=== PATIENT | female | born 1930 | race Caucasian/White ===

== ENCOUNTER → 2017-03-14 | Outpatient (CLI) | payer OTHER ==
[~2017-03-14] MED LIST: ASPI-321 PO; BIOTPOW17 PO; CALC600T9 PO; CENTRUM SILVERSILVE2 PO; CHOLCAP10 PO; LEVO100T7 PO; OMEGCAP2 PO; REDCAP2 PO; SIMV-151 PO; VITAMIN B12 PO; [UNRECOGNIZED DRUG - CODE] PO
[2017-03-14 09:54] LABS: ALT/SGPT 25 U/L (12-78); BLOOD UREA NITROGEN 18 mg/dl (7-18); BUN/CREATININE RATIO 15.2 (10-20); CALCIUM 9.4 mg/dl (8.5-10.1); CARBON DIOXIDE 28 mmol/L (21-32); CHLORIDE 105 mmol/L (98-107); CHOLESTEROL 193 mg/dl (0-200); GLUCOSE 104 mg/dl (70-99); POTASSIUM 4.1 mmol/L (3.5-5.1); SODIUM 140 mmol/L (136-145); TRIGLYCERIDES 276 mg/dl (0-150); VERY LOW DENSITY LIPOPROT CALC 55 mg/dl
[2017-03-14 10:03] LABS: ESTIMATED AVERAGE GLUCOSE 126 mg/dl; HA1C FLAG Normal (Normal)
[2017-03-14 10:05] LABS: ALKALINE PHOSPHATASE 53 U/L (45-117); AST/SGOT 24 U/L (15-37); CHOLESTEROL/HDL RATIO 5.2; HDL CHOLESTEROL 37 mg/dl; LDL CHOLESTEROL CALCULATED 101 mg/dl
== END | disposition home or self-care (01) ==
LOC: C.LAB 07:19
PROVIDERS: ATTEND Internal Medicine
DX: R73.03 Prediabetes (principal)

== ENCOUNTER → 2017-05-02 | Outpatient (CLI) | payer OTHER | END | disposition home or self-care (01) | LOC: C.LAB 07:42 | PROVIDERS: ATTEND Physician Assistant Medical | DX: E03.9 Hypothyroidism, unspecified (principal) ==

== ENCOUNTER → 2018-03-26 | Outpatient (CLI) | payer OTHER ==
[2018-03-26 09:55] LABS: BASO % 0.2 %; BASO ABS # 0.01 K/uL (0-0.2); EOS ABS # 0.13 K/uL (0-0.5); HEMATOCRIT 44.1 % (37-47); HEMOGLOBIN 14.4 g/dL (12.0-16.0); IG# 0.01 K/uL (0.00-0.02); LYMPH % 34.5 %; LYMPH ABS # 2.26 K/uL (1.2-3.4); MEAN CELL VOLUME 89.5 fL (80-100); MEAN CORPUSCULAR HEMOGLOBIN 29.2 pg (25-34); MEAN CORPUSCULAR HGB CONC 32.7 g/dl (32-36); MEAN PLATELET VOLUME 11.2 fL (7.4-10.4); MONO % 9.3 %; MONO ABS # 0.61 K/uL (0.11-0.59); NEUT % 53.8 %; NEUT ABS # 3.54 K/uL (1.4-6.5); PLATELET COUNT 187 K/uL (130-400); RED CELL DISTRIBUTION WIDTH CV 13.5 % (11.5-14.5); RED CELL DISTRIBUTION WIDTH SD 43.8 fL (36.4-46.3); WHITE BLOOD COUNT 6.56 K/uL (4.8-10.8)
[2018-03-26 09:58] LABS: HEMOGLOBIN A1C 5.9 % (4.5-5.6)
[2018-03-26 10:28] LABS: ALBUMIN 3.6 gm/dl (3.4-5.0); ALKALINE PHOSPHATASE 65 U/L (45-117); ALT/SGPT 25 U/L (12-78); AST/SGOT 21 U/L (15-37); BLOOD UREA NITROGEN 19 mg/dl (7-18); CALCIUM 8.5 mg/dl (8.5-10.1); CARBON DIOXIDE 28 mmol/L (21-32); CHOLESTEROL 171 mg/dl (0-200); CREATININE 1.06 mg/dl (0.60-1.20); GLUCOSE 104 mg/dl (70-99); LDL CHOLESTEROL CALCULATED 86 mg/dl; POTASSIUM 4.2 mmol/L (3.5-5.1); SODIUM 138 mmol/L (136-145); TOTAL PROTEIN 7.3 gm/dl (6.4-8.2)
== END | disposition home or self-care (01) ==
LOC: C.LAB 07:23
PROVIDERS: ATTEND Internal Medicine
DX: Z00.00 Encounter for general adult medical examination without abnormal findings (principal); E78.5 Hyperlipidemia, unspecified; E03.9 Hypothyroidism, unspecified; R73.03 Prediabetes

== ENCOUNTER 2021-04-06 10:49 | Inpatient (IN) ==
--- NOTE | 2021-04-06 11:50 | Emergency Department Note ---
Impression & Plan Acute retinal artery occlusion, Abnormal EKG, Elevated troponin I level ED Provider Note NAME: NAYE HARRINGTON AGE: 89 SEX: F : 1930 ARRIVES VIA: Walk-In INFORMANT: Patient, ED PROVIDER(S): Steven Montoya DO CHIEF COMPLAINT: Loss of vision HPI: The patient is an 89-year-old female who presented to the emergency department for an evaluation of left eye vision loss. The patient states that she awoke this morning with decreased vision in her left eye. She immediately set up an appointment with her eye doctor. When she was evaluated she had dilation of her left pupil. Direct retinal evaluation revealed signs of central retinal artery occlusion. The patient at this time denies having any chest pain or difficulty breathing. She has never had a history of a stroke before. She does not take oral anticoagulants. She has no history of atrial fibrillation. She states that she does have a dull headache which is diffuse but this is not atypical for her. She denies having any recent trauma. The patient states that she has a darkening of her entire vision field. When she covers her right eye she cannot see out of her left eye. She states that she has been compliant with her outpatient medications otherwise. She is not seen her family doctor for the symptoms. She was seen recently by her family doctor and sent for further testing because of chest pain and shortness of breath. At that time she had a CT of the chest. ROS: See above HPI for pertinent positives & negatives. A total of 10 systems reviewed and were otherwise negative. PAST MEDICAL HISTORY: See Below PAST SURGICAL HISTORY: See Below FAMILY HISTORY: See Below SOCIAL HISTORY: See Below HOME MEDICATIONS: See Below ALLERGIES: See Below VITALS: See Below PHYSICAL EXAMINATION: GENERAL: Patient is awake alert in no acute distress patient is resting comfortably and showing no signs of anxiety EYES: The conjunctivae are clear. The left pupil is dilated consistent with recent visit to the mold bunch trimmer. The right eye reveals a midsize pupil which is reactive to light. EARS, NOSE, MOUTH AND THROAT: The nose is without any evidence of any deformity. Mucous membranes are moist. Tongue is midline. NECK: The neck is nontender and supple. There is no bruit noted to auscultation. RESPIRATORY: Normal respiratory effort is noted there is no evidence of wheezing rhonchi or rales CARDIOVASCULAR: Regular rate and rhythm noted there no murmurs rubs or gallops normal S1 normal S2. GASTROINTESTINAL: The abdomen is soft. Abdomen is nontender. MUSCULOSKELETAL/EXTREMITIES: There is no evidence of gross deformity full range of motion is noted in the hips and shoulders. SKIN: There is no obvious evidence of any rash. There are no petechiae, pallor or cyanosis noted. NEUROLOGIC: Patient is awake alert and oriented x3 strength is symmetric patellar reflexes are 2+ bilaterally MEDICAL DECISION MAKING: The patient is an 89-year-old female who presented to the emergency department for an evaluation of decreased vision in her left eye. She was seen at an eye doctor and had dilation of her pupil and was found to have signs of a central retinal artery occlusion. I discussed the patient's laboratory and radiographic studies with her. She was not in atrial fibrillation but had an abnormal EKG as well as an elevated troponin. This could point to an underlying cardiac source and may make an embolic phenomena possible. She was also found to have abnorm alities on her angiography. I discussed the patient's laboratory and radiographic studies with her. Given her findings I [facility] have agreed to evaluate the patient in the emergency department for further management and disposition. The patient did not have significant neurologic findings otherwise. She was not made a stroke alert. She did wake up with the symptoms. Triage Nursing notes reviewed. Prior medical records reviewed Vital Signs: reviewed and remarkable for elevated blood pressure. Differential diagnosis: Infection, dehydration, metabolic abnormality, hypo/hyperglycemia, electrolyte disturbance, anemia, hypoxia, cardiac sources, intracerebral event, toxicologic, neurologic, as well as other pathologies. ER treatment provided: See below Diagnostics interpreted by me: ECG: EKG was obtained in the emergency department. My interpretation is normal sinus rhythm at 89 bpm. There was no ectopy. Nonspecific ST segment abnormalities were noted. This was compared to a tracing from December 192009. The ST segment abnormalities are more apparent on the new tracing. Cardiac Monitoring: An order was placed for continuous cardiac monitoring. The monitor shows a rate of 81 bpm with sinus rhythm. Laboratory studies: As stated above and show below. Imaging studies: See below Consultation(s): I discussed this case with Dr. Olmedo who is [facility] He will evaluate the patient in the emergency department for further management and disposition. Past Med/Surg History Medical History (Updated 04/06/21 @ 14:42 by Steven Montoya DO) Anosmia Heart palpitations Hyperlipidemia Hypothyroid Surgical History History of cataract surgery History of section History of colonoscopy History of hysterectomy History of tonsillectomy Family History Unknown Hypertension Mother Congestive heart failure Father Congestive heart failure Daughter Diabetes Son Diabetes Denies family history of Ovarian cancer Prostate cancer Myocardial infarction Breast cancer Lung cancer Colorectal cancer Social History Smoking Status: Former smoker Tobacco Type: Cigarettes Second Hand Exposure: No; Hx Alcohol Use: Yes Alcohol type: wine Alcohol Intake Frequency: 4 or More x per/Week Hx Substance Use: No Preferred Language: [place] Communication Ability: Effective Visual Impairment: Limited Hearing Ability: Normal 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: No marital status: / Current Living Situation: Alone current occupational status: retired How many Children do You have: 2 Feels Safe at Home: Yes Childhood Exposure to Second-Hand Smoke: No caffeine: Yes Dental Care, Regularly: Yes Physical Activity Frequency: Daily Seatbelt Use: always Sunscreen Use: Yes Allergies Allergies Allergy/AdvReac Type Severity Reaction Status Date / Time codeine Allergy Mild VOMITING Verified 04/06/21 11:02 Home Meds Home Medications Medication Instructions Recorded Confirmed B-complex with vitamin C (Super B 1 tab PO DAILY 03/22/19 04/06/21 Complex-Vitamin C) cholecalciferol (vitamin D3) 125 5,000 units PO DAILY tab 03/22/19 04/06/21 mcg (5,000 unit) tablet multivitamin-ferrous 1 tab PO DAILY 03/22/19 04/06/21 fumarate-folic acid 18 mg-400 mcg tablet (Centrum Women) omega-3 acid ethyl esters 1 gram 1 cap PO DAILY cap 03/22/19 04/06/21 capsule levothyroxine 112 mcg capsule 112 mcg PO DAILY 02/04/21 04/06/21 ascorbic acid (vitamin C) 500 mg 500 mg PO DAILY 04/06/21 04/06/21 tablet (Vitamin C) aspirin 81 mg tablet,delayed 81 mg PO DAILY 04/06/21 04/06/21 release calcium carbonate 600 mg calcium 600 mg PO DAILY 04/06/21 04/06/21 (1,500 mg) tablet (Calcium) fenofibric acid (choline) 135 mg 135 mg PO DAILY 04/06/21 04/06/21 capsule,delayed release (Trilipix) zinc sulfate 50 mg zinc (220 mg) 50 mg PO BID 04/06/21 04/06/21 tablet Previous Rx's Medication Instructions Recorded amlodipine 5 mg tablet 2.5 mg PO QAM #30 tab 04/28/20 simvastatin 20 mg tablet 20 mg PO QPM #90 tab 09/07/20 chlorthalidone 25 mg tablet 25 mg PO DAILY #90 tab 12/23/20 Results & Data (ED) Vital Signs Vital Signs - 24 hr 04/06/21 10:53 04/06/21 11:33 Temperature 36.6 C Temperature Source Temporal Artery Scan Pulse Rate 84 81 Pulse Rate from SpO2 Sensor 80 Pulse Rhythm Regular Pulse Strength Normal Respiratory Rate 20 14 Respiratory Effort / Characteristics Non-Labored Spontaneous Respiratory Depth Normal Respiratory Pattern Regular Blood Pressure 174/85 H 158/75 H Blood Pressure Mean 114 102 Blood Pressure Position Sitting Pulse Oximetry 95 95 Oxygen Delivery Method Room Air Sepsis Recent Fever Within 48 Hours No Sepsis New/Unexplained Change in Mental Status No Sepsis Action Taken by Nursing No Action Required Home Medications Current Medication List: was personally reviewed by me Laboratory Data Attestation: I reviewed the patient's lab results. Result diagrams: 04/06/21 11:30 04/06/21 11:30 Lab Results 04/06/21 04/06/21 04/06/21 Range/Units 11:27 11:30 11:30 WBC 8.11 (4.8-10.8) K/uL RBC 4.82 (4.2-5.4) M/uL Hgb 14.8 (12.0-16.0) g/dL Hct 43.9 (37-47) % MCV 91.1 (80-100) fL MCH 30.7 (25-34) pg MCHC 33.7 (32-36) g/dL RDW Std Deviation 42.5 (36.4-46.3) fL RDW Coeff of Denise 12.7 (11.5-14.5) % Plt Count 243 (130-400) K/uL MPV 10.4 (7.4-10.4) fL Immature Gran % (Auto) 0.2 % Neut % (Auto) 67.4 % Lymph % (Auto) 22.8 % Greene % (Auto) 7.9 % Eos % (Auto) 1.5 % Baso % (Auto) 0.2 % Neut # (Auto) 5.46 (1.4-6.5) K/uL Lymph # (Auto) 1.85 (1.2-3.4) K/uL Greene # (Auto) 0.64 H (0.11-0.59) K/uL Eos # (Auto) 0.12 (0-0.5) K/uL Baso # (Auto) 0.02 (0-0.2) K/uL Immature Gran # (Auto) 0.02 (0.00-0.02) K/uL ESR (0-30) mm/hr PT 10.3 (9.0-12.0) Seconds INR 1.0 (0.9-1.1) APTT 26.4 (21.0-31.0) Seconds PTT Ratio 1.0 Sodium (136-145) mmol/L Potassium (3.5-5.1) mmol/L Chloride (98-107) mmol/L Carbon Dioxide (21-32) mmol/L Anion Gap (3-11) BUN (7-18) mg/dl Creatinine (0.6-1.2) mg/dl Est Cr Clr Drug Dosing ml/min Est GFR ( Amer) ml/min Est GFR (Non-Af Amer) ml/min BUN/Creatinine Ratio (10-20) Glucose (70-99) mg/dl POC Glucose 101 H (70-99) mg/dl Calcium (8.5-10.1) mg/dl Magnesium (1.8-2.4) mg/dl Total Bilirubin (0.2-1) mg/dl AST (15-37) U/L ALT (12-78) U/L Alkaline Phosphatase (45-117) U/L Troponin I (0-0.045) ng/ml C-Reactive Protein (0-0.29) mg/dl Total Protein (6.4-8.2) gm/dl Albumin (3.4-5.0) gm/dl Globulin (2.5-4.0) gm/dl Albumin/Globulin Ratio (0.9-2) Specimen Hemolysis COVID-19 Eval Order SARS-CoV-2 (PCR) (Negative) 04/06/21 04/06/21 04/06/21 Range/Units 11:30 11:30 13:08 WBC (4.8-10.8) K/uL RBC (4.2-5.4) M/uL Hgb (12.0-16.0) g/dL Hct (37-47) % MCV (80-100) fL MCH (25-34) pg MCHC (32-36) g/dL RDW Std Deviation (36.4-46.3) fL RDW Coeff of Denise (11.5-14.5) % Plt Count (130-400) K/uL MPV (7.4-10.4) fL Immature Gran % (Auto) % Neut % (Auto) % Lymph % (Auto) % Greene % (Auto) % Eos % (Auto) % Baso % (Auto) % Neut # (Auto) (1.4-6.5) K/uL Lymph # (Auto) (1.2-3.4) K/uL Greene # (Auto) (0.11-0.59) K/uL Eos # (Auto) (0-0.5) K/uL Baso # (Auto) (0-0.2) K/uL Immature Gran # (Auto) (0.00-0.02) K/uL ESR 49 H (0-30) mm/hr PT (9.0-12.0) Seconds INR (0.9-1.1) APTT (21.0-31.0) Seconds PTT Ratio Sodium 135 L (136-145) mmol/L Potassium 4.0 (3.5-5.1) mmol/L Chloride 100 (98-107) mmol/L Carbon Dioxide 29 (21-32) mmol/L Anion Gap 6.0 (3-11) BUN 21 H (7-18) mg/dl Creatinine 1.01 (0.6-1.2) mg/dl Est Cr Clr Drug Dosing 40.4 ml/min Est GFR ( Amer) 57.2 ml/min Est GFR (Non-Af Amer) 49.3 ml/min BUN/Creatinine Ratio 20.8 H (10-20) Glucose 99 (70-99) mg/dl POC Glucose (70-99) mg/dl Calcium 10.2 H (8.5-10.1) mg/dl Magnesium 1.8 (1.8-2.4) mg/dl Total Bilirubin 0.4 (0.2-1) mg/dl AST 26 (15-37) U/L ALT 26 (12-78) U/L Alkaline Phosphatase 56 (45-117) U/L Troponin I 0.177 H* (0-0.045) ng/ml C-Reactive Protein 0.61 H (0-0.29) mg/dl Total Protein 8.2 (6.4-8.2) gm/dl Albumin 4.1 (3.4-5.0) gm/dl Globulin 4.1 H (2.5-4.0) gm/dl Albumin/Globulin Ratio 1.0 (0.9-2) Specimen Hemolysis COVID-19 Eval Order Covid19 at [facility] SARS-CoV-2 (PCR) (Negative) 04/06/21 Range/Units 13:08 WBC (4.8-10.8) K/uL RBC (4.2-5.4) M/uL Hgb (12.0-16.0) g/dL Hct (37-47) % MCV (80-100) fL MCH (25-34) pg MCHC (32-36) g/dL RDW Std Deviation (36.4-46.3) fL RDW Coeff of Denise (11.5-14.5) % Plt Count (130-400) K/uL MPV (7.4-10.4) fL Immature Gran % (Auto) % Neut % (Auto) % Lymph % (Auto) % Greene % (Auto) % Eos % (Auto) % Baso % (Auto) % Neut # (Auto) (1.4-6.5) K/uL Lymph # (Auto) (1.2-3.4) K/uL Greene # (Auto) (0.11-0.59) K/uL Eos # (Auto) (0-0.5) K/uL Baso # (Auto) (0-0.2) K/uL Immature Gran # (Auto) (0.00-0.02) K/uL ESR (0-30) mm/hr PT (9.0-12.0) Seconds INR (0.9-1.1) APTT (21.0-31.0) Seconds PTT Ratio Sodium (136-145) mmol/L Potassium (3.5-5.1) mmol/L Chloride (98-107) mmol/L Carbon Dioxide (21-32) mmol/L Anion Gap (3-11) BUN (7-18) mg/dl Creatinine (0.6-1.2) mg/dl Est Cr Clr Drug Dosing ml/min Est GFR ( Amer) ml/min Est GFR (Non-Af Amer) ml/min BUN/Creatinine Ratio (10-20) Glucose (70-99) mg/dl POC Glucose (70-99) mg/dl Calcium (8.5-10.1) mg/dl Magnesium (1.8-2.4) mg/dl Total Bilirubin (0.2-1) mg/dl AST (15-37) U/L ALT (12-78) U/L Alkaline Phosphatase (45-117) U/L Troponin I (0-0.045) ng/ml C-Reactive Protein (0-0.29) mg/dl Total Protein (6.4-8.2) gm/dl Albumin (3.4-5.0) gm/dl Globulin (2.5-4.0) gm/dl Albumin/Globulin Ratio (0.9-2) Specimen Hemolysis COVID-19 Eval Order SARS-CoV-2 (PCR) NEGATIVE (Negative) Administered Medications Discontinued Medications Ioversol (Optiray 320 125ml) 120 ml IV ONCE ONE Stop: 04/06/21 12:45 Last Admin: 04/06/21 12:44 Dose: 120 ml Documented by: [id number] Imaging Data Radiologist's Impression: Chest X-Ray 04/06/21 11:04 XR chest 1V portable HISTORY: Stroke Like Symptoms COMPARISON: Chest 03/25/2021. FINDINGS: The lungs are hyperexpanded with mild apical predominant emphysematous changes. Stable chronic interstitial thickening the lung bases. No new focal lung consolidations to suggest pneumonia. No evidence for pulmonary edema. The heart is normal in size. No pleural effusions. No pneumothorax. IMPRESSION: No significant change compared to the prior study. No acute process. ACT 112: Negative or not required by law. Electronically signed by: Glenn Phillips M.D. 04/06/2021 11:[address] 04/06/21 11:04 CT head/brain wo con CLINICAL HISTORY: Stroke Like Symptoms COMPARISON STUDY: December 19, 2009 TECHNIQUE: Axial CT of the brain is performed from the vertex to the skull base. IV contrast was not administered for this examination. A dose lowering technique was utilized adhering to the principles of ALARA. CT DOSE: 1041.21 mGy.cm FINDINGS: No intra or extra-axial mass lesions are visualized. There is no CT evidence of acute cortical infarction. There is no evidence of midline shift. There is no acute hemorrhage. No acute depressed calvarial fractures are visualized. There are patchy white matter hypodensities, most prominent within left basal ganglia and subcortical white matter of the left frontal lobe which were also seen on prior, likely on a small vessel basis. Mild atrophic changes of brain parenchyma associated with ex vacuo dilatation of ventricles. There is no evidence of acute sinusitis IMPRESSION: No acute intracranial hemorrhage, no midline shift or space occupying lesions. Mild atrophic changes of brain parenchyma. Chronic small vessel ischemia. ACT 112: Negative or not required by law. The above report was generated using voice recognition software. It may contain grammatical, syntax or spelling errors. Electronically signed by: Destiny Flannery DO 04/06/2021 12:58 PM Head CTA 04/06/21 11:04 CT ANGIOGRAM OF THE BRAIN; CT ANGIOGRAM OF THE NECK CLINICAL HISTORY: Stroke like symptoms. COMPARISON STUDY: Unenhanced CT of the brain performed concurrently on 04/06/2021. TECHNIQUE: Following the IV administration of 120 of Optiray 320, CT angiogram of the head and neck was performed from the aortic arch to the vertex. Images are reviewed in the axial, sagittal, and coronal planes. 3-D MIPS images are created and assessed. IV contrast was administered without complication. All measurements were calculated based on NASCET criteria. A dose lowering technique was utilized adhering to the principles of ALARA. FINDINGS: Brain parenchyma: There is age-related involutional change noting mild subcortical and periventricular microangiopathic disease. There is no hemorrhage, mass effect, or evidence of acute territorial ischemia by CT criteria. There is no evidence of enhancing mass lesion on the angiogram phase images. The ventricles, sulci, and cisterns are prominent secondary to involutional change. Huerta-white matter differentiation is preserved. No extra- axial fluid collection is seen. Right carotid arterial system: The right common carotid artery is widely patent, as are the right internal and external carotid arteries. Calcified plaque is noted in the carotid bulb. There is a beaded appearance of the mid to distal internal carotid artery. Left carotid arterial system: The left common carotid artery is widely patent, as are the left internal and external carotid arteries. Calcified Plaque is noted in the carotid bulb. The mid to distal internal carotid artery demonstrates a beaded appearance Vertebral arteries: The vertebral arteries are widely patent bilaterally and codominant. Subclavian arteries: Widely patent bilaterally. Intracranial vasculature: There is atherosclerotic calcification of the cavernous carotid and vertebral arteries. There is origin of the right posterior cerebral artery. The internal carotid arteries are patent at the skull base, as are the anterior and middle cerebral arteries bilaterally. The vertebrobasilar system and posterior cerebral arteries are widely patent. The vertebral arteries are codominant. There is no aneurysm, high-grade stenosis, or focal vessel cut off seen throughout the intracranial circulation. Jugular veins: Patent bilaterally. Dural sinuses: Patent. Lung apices: Mild emphysematous change is noted in the upper lobes. Upper lobe lung parenchyma is otherwise clear as imaged. Soft tissues: The visualized pharyngeal soft tissues are normal in appearance noting angiographic phase technique. The oropharyngeal airway appears widely patent. The thyroid gland is atrophic. The salivary glands are normal in appearance. No cervical lymphadenopathy is seen. Skeletal structures: The skeletal structures are osteopenic. The calvarium appears intact. The cervical spine is maintained noting advanced multilevel spondylosis.. No lytic or blastic lesion is seen. Orbits: The bony orbits are intact. Orbital contents are normal as visualized noting bilateral ocular lens implants. Sinuses and mastoids: The paranasal sinuses are clear. The mastoid air cells are well pneumatized. IMPRESSION: 1. There is no evidence of hemorrhage, mass effect, or acute territorial ischemia noting angiographic phase technique. 2. Unremarkable CT angiogram of the brain. 3. 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 4. Otherwise unremarkable CT angiogram of the neck. ACT 112: Negative or not required by law. Electronically signed by: Willian Thomason M.D. 04/06/2021 1:02 PM Neck CTA 08/17/21 11:04 CT ANGIOGRAM OF THE BRAIN; CT ANGIOGRAM OF THE NECK CLINICAL HISTORY: Stroke like symptoms. COMPARISON STUDY: Unenhanced CT of the brain performed concurrently on 04/06/2021. TECHNIQUE: Following the IV administration of 120 of Optiray 320, CT angiogram of the head and neck was performed from the aortic arch to the vertex. Images are reviewed in the axial, sagittal, and coronal planes. 3-D MIPS images are created and assessed. IV contrast was administered without complication. All measurements were calculated based on NASCET criteria. A dose lowering technique was utilized adhering to the principles of ALARA. FINDINGS: Brain parenchyma: There is age-related involutional change noting mild subcortical and periventricular microangiopathic disease. There is no hemorrhage, mass effect, or evidence of acute territorial ischemia by CT criteria. There is no evidence of enhancing mass lesion on the angiogram phase images. The ventricles, sulci, and cisterns are prominent secondary to involutional change. Huerta-white matter differentiation is preserved. No extra- axial fluid collection is seen. Right carotid arterial system: The right common carotid artery is widely patent, as are the right internal and external carotid arteries. Calcified plaque is noted in the carotid bulb. There is a beaded appearance of the mid to distal internal carotid artery. Left carotid arterial system: The left common carotid artery is widely patent, as are the left internal and external carotid arteries. Calcified Plaque is noted in the carotid bulb. The mid to distal internal carotid artery demonstrates a beaded appearance Vertebral arteries: The vertebral arteries are widely patent bilaterally and codominant. Subclavian arteries: Widely patent bilaterally. Intracranial vasculature: There is atherosclerotic calcification of the cavernous carotid and vertebral arteries. There is origin of the right posterior cerebral artery. The internal carotid arteries are patent at the skull base, as are the anterior and middle cerebral arteries bilaterally. The vertebrobasilar system and posterior cerebral arteries are widely patent. The vertebral arteries are codominant. There is no aneurysm, high-grade stenosis, or focal vessel cut off seen throughout the intracranial circulation. Jugular veins: Patent bilaterally. Dural sinuses: Patent. Lung apices: Mild emphysematous change is noted in the upper lobes. Upper lobe lung parenchyma is otherwise clear as imaged. Soft tissues: The visualized pharyngeal soft tissues are normal in appearance noting angiographic phase technique. The oropharyngeal airway appears widely patent. The thyroid gland is atrophic. The salivary glands are normal in appearance. No cervical lymphadenopathy is seen. Skeletal structures: The skeletal structures are osteopenic. The calvarium appears intact. The cervical spine is maintained noting advanced multilevel spondylosis.. No lytic or blastic lesion is seen. Orbits: The bony orbits are intact. Orbital contents are normal as visualized noting bilateral ocular lens implants. Sinuses and mastoids: The paranasal sinuses are clear. The mastoid air cells are well pneumatized. IMPRESSION: 1. There is no evidence of hemorrhage, mass effect, or acute territorial ischemia noting angiographic phase technique. 2. Unremarkable CT angiogram of the brain. 3. 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 4. Otherwise unremarkable CT angiogram of the neck. ACT 112: Negative or not required by law. Electronically signed by: Willian Thomason M.D. 04/06/2021 1:02 PM Discharge Plan Visit Data Chief Complaint: Eye Problems Stated Complaint: OCCLUSION LEFT EYE ED Provider: Steven Montoya Discharge Problem: Acute retinal artery occlusion, Abnormal EKG, Elevated troponin I level Patient Disposition: Being Evaluated by Hospitalist Condition: Good Forms Stand Alone Forms: My [facility] [employer] Prescriptions Prescriptions: No Action simvastatin 20 mg tablet 20 mg PO QPM Qty: 90 RF: 3 chlorthalidone 25 mg tablet 25 mg PO DAILY Qty: 90 RF: 3 Centrum Women 18-400 mg-mcg tablet 1 tab PO DAILY RF: 0 omega-3 acid ethyl esters 1 gram capsule 1 cap PO DAILY RF: 0 B-complex with vitamin C [Super B Complex-Vitamin C] tablet 1 tab PO DAILY RF: 0 cholecalciferol (vitamin D3) 5,000 unit tablet 5,000 units PO DAILY RF: 0 amlodipine 5 mg tablet 2.5 mg PO QAM Qty: 30 RF: 5 levothyroxine 112 mcg capsule 112 mcg PO DAILY RF: 0 aspirin 81 mg Tablet,Delayed Release (Dr/Ec) 81 mg PO DAILY RF: 0 zinc sulfate 50 mg zinc (220 mg) Tablet 50 mg PO BID RF: 0 calcium carbonate [Calcium 600] 600 mg calcium (1,500 mg) Tablet 600 mg PO DAILY RF: 0 ascorbic acid (vitamin C) [Vitamin C] 500 mg Tablet 500 mg PO DAILY RF: 0 fenofibric acid (choline) [Trilipix] 135 mg capsule,delayed release(DR/EC) 135 mg PO DAILY RF: 0 Referrals Referrals: Bryant Lujan MD [Primary Care Provider] -
[2021-04-06 11:59] LABS: Partial Thromboplastin Time 26.4 Seconds (21.0-31.0); Prothrombin Time 10.3 Seconds (9.0-12.0)
[2021-04-06 12:03] LABS: Albumin Level 4.1 gm/dl (3.4-5.0); BUN Creatinine Ratio 20.8 (10-20); C Reactive Protein 0.61 mg/dl (0-0.29); Calcium 10.2 mg/dl (8.5-10.1); Creatinine Clr Calc Pharmacy 40.4 ml/min; Est GFR (African American) 57.2 ml/min; Est GFR (Non-African American) 49.3 ml/min; Magnesium 1.8 mg/dl (1.8-2.4)
[2021-04-06 12:11] LABS: Basophils # (auto) 0.02 K/uL (0-0.2); Basophils % (auto) 0.2 %; Eosinophils # (auto) 0.12 K/uL (0-0.5); Eosinophils % (auto) 1.5 %; Hematocrit (blood only) 43.9 % (37-47); Hemoglobin 14.8 g/dL (12.0-16.0); Immature Granulocytes # (auto) 0.02 K/uL (0.00-0.02); Immature Granulocytes % (auto) 0.2 %; Lymphocytes # (auto) 1.85 K/uL (1.2-3.4); Lymphocytes % (auto) 22.8 %; Mean Corpuscular Hemoglobin 30.7 pg (25-34); Mean Corpuscular Hgb Conc 33.7 g/dL (32-36); Mean Corpuscular Volume 91.1 fL (80-100); Mean Platelet Volume 10.4 fL (7.4-10.4); Monocytes # (auto) 0.64 K/uL (0.11-0.59); Monocytes % (auto) 7.9 %; Neutrophils # (auto) 5.46 K/uL (1.4-6.5); Neutrophils % (auto) 67.4 %; Platelet Count 243 K/uL (130-400); RDW Coefficient of Variation 12.7 % (11.5-14.5); RDW Standard Deviation 42.5 fL (36.4-46.3); Red Blood Count 4.82 M/uL (4.2-5.4); White Blood Count 8.11 K/uL (4.8-10.8)
[2021-04-06 12:12] LABS: Bilirubin,Total 0.4 mg/dl (0.2-1); Globulin 4.1 gm/dl (2.5-4.0); Total Protein 8.2 gm/dl (6.4-8.2); Troponin I 0.177 ng/ml (0-0.045)
[2021-04-06] MEDS ORDERED: OPTIRAY 320 125ml IV ONE (12:44)
--- NOTE | 2021-04-06 12:59 | CT Scan Report ---
CT head/brain wo con CLINICAL HISTORY: Stroke Like Symptoms COMPARISON STUDY: December 19, 2009 TECHNIQUE: Axial CT of the brain is performed from the vertex to the skull base. IV contrast was not administered for this examination. A dose lowering technique was utilized adhering to the principles of ALARA. CT DOSE: 1041.21 mGy.cm FINDINGS: No intra or extra-axial mass lesions are visualized. There is no CT evidence of acute cortical infarc tion. There is no evidence of midline shift. There is no acute hemorrhage. No acute depressed calvar ial fractures are visualized. There are patchy white matter hypodensities, most prominent within left basal ganglia and subcortical white matter of the left frontal lobe which were also seen on prior, likely on a small vessel basis. Mild atrophic changes of brain parenchyma associated with ex vacuo dilatation of ventricles. There is no evidence of acute sinusitis IMPRESSION: No acute intracranial hemorrhage, no midline shift or space occupying lesions. Mild atrophic changes of brain parenchyma. Chronic small vessel ischemia. ACT 112: Negative or not required by law. The above report was generated using voice recognition software. It may contain grammatical, syntax o r spelling errors. Electronically signed by: Destiny Flannery DO 04/06/2021 12:58 PM
--- NOTE | 2021-04-06 13:03 | CT Scan Report ---
CT ANGIOGRAM OF THE BRAIN; CT ANGIOGRAM OF THE NECK CLINICAL HISTORY: Stroke like symptoms. COMPARISON STUDY: Unenhanced CT of the brain performed concurrently on 04/06/2021. TECHNIQUE: Following the IV administration of 120 of Optiray 320, CT angiogram of the head and neck w as performed from the aortic arch to the vertex. Images are reviewed in the axial, sagittal, and leslie nal planes. 3-D MIPS images are created and assessed. IV contrast was administered without complicati on. All measurements were calculated based on NASCET criteria. A dose lowering technique was utilize d adhering to the principles of ALARA. FINDINGS: Brain parenchyma: There is age-related involutional change noting mild subcortical and periventricula r microangiopathic disease. There is no hemorrhage, mass effect, or evidence of acute territorial isc hemia by CT criteria. There is no evidence of enhancing mass lesion on the angiogram phase images. Th e ventricles, sulci, and cisterns are prominent secondary to involutional change. Huerta-white matter d ifferentiation is preserved. No extra-axial fluid collection is seen. Right carotid arterial system: The right common carotid artery is widely patent, as are the right int ernal and external carotid arteries. Calcified plaque is noted in the carotid bulb. There is a beaded appearance of the mid to distal internal carotid artery. Left carotid arterial system: The left common carotid artery is widely patent, as are the left internet database specialist al and external carotid arteries. Calcified Plaque is noted in the carotid bulb. The mid to distal in ternal carotid artery demonstrates a beaded appearance Vertebral arteries: The vertebral arteries are widely patent bilaterally and codominant. Subclavian arteries: Widely patent bilaterally. Intracranial vasculature: There is atherosclerotic calcification of the cavernous carotid and vertebr al arteries. There is origin of the right posterior cerebral artery. The internal carotid arter ies are patent at the skull base, as are the anterior and middle cerebral arteries bilaterally. The v ertebrobasilar system and posterior cerebral arteries are widely patent. The vertebral arteries are c odominant. There is no aneurysm, high-grade stenosis, or focal vessel cut off seen throughout the int racranial circulation. Jugular veins: Patent bilaterally. Dural sinuses: Patent. Lung apices: Mild emphysematous change is noted in the upper lobes. Upper lobe lung parenchyma is oth erwise clear as imaged. Soft tissues: The visualized pharyngeal soft tissues are normal in appearance noting angiographic pha se technique. The oropharyngeal airway appears widely patent. The thyroid gland is atrophic. The sali vary glands are normal in appearance. No cervical lymphadenopathy is seen. Skeletal structures: The skeletal structures are osteopenic. The calvarium appears intact. The cervic al spine is maintained noting advanced multilevel spondylosis.. No lytic or blastic lesion is seen. Orbits: The bony orbits are intact. Orbital contents are normal as visualized noting bilateral ocular lens implants. Sinuses and mastoids: The paranasal sinuses are clear. The mastoid air cells are well pneumatized. IMPRESSION: 1. There is no evidence of hemorrhage, mass effect, or acute territorial ischemia noting angiographic phase technique. 2. Unremarkable CT angiogram of the brain. 3. The internal carotid arteries demonstrate a beaded appearance bilaterally, typical in appearance f or fibromuscular dysplasia. 4. Otherwise unremarkable CT angiogram of the neck. ACT 112: Negative or not required by law. Electronically signed by: Willian Thomason M.D. 04/06/2021 1:02 PM
--- NOTE | 2021-04-06 13:31 | History & Physical Report ---
Date of Service April 06, 2021 Assessment & Plan (1) Central retinal artery occlusion, left eye: Plan: Patient will be admitted for left central retinal artery occlusion. Will admit stroke set workup. Obtained CTA head and neck. will obtain MRI will obtain echo. Obtained ESR, CRP: mildly elevated. will repeat in AM. consult neuro. place on plavix and ASA. (2) Hyperlipidemia: Plan: will check FLP in AM. Order high intensity statin. (3) Hypothyroidism: Plan: resume levothyroxine. (4) Pre-diabetes: Plan: OBTAIN a1c (5) Hypertension: Plan: monitor BP. will likely resume BP meds at home. History of Present Illness Chief Complaint: Left eye vision loss Primary Care Provider: Bryant Lujan MD 89 yo female who reports waking up with left vision loss. Patient went to see her ophtalmologist who diagnosed a left central retinal artery occlusion. Patient was then brought to the ER. The patient denies any history of a stroke before. She does not take oral anticoagulants. She has no history of atrial fibrillation. She denies having any recent trauma. When she covers her right eye she cannot see out of her left eye except for the peripheral field. She states that she has been compliant with her outpatient medications otherwise. Allergies Allergy/AdvReac Type Severity Reaction Status Date / Time codeine Allergy Mild VOMITING Verified 04/06/21 11:02 Home Medications Medication Instructions Recorded Confirmed Type B-complex with vitamin C (Super B 1 tab PO DAILY 03/22/19 04/06/21 History Complex-Vitamin C) cholecalciferol (vitamin D3) 125 5,000 units PO DAILY tab 03/22/19 04/06/21 History mcg (5,000 unit) tablet multivitamin-ferrous 1 tab PO DAILY 03/22/19 04/06/21 History fumarate-folic acid 18 mg-400 mcg tablet (Centrum Women) omega-3 acid ethyl esters 1 gram 1 cap PO DAILY cap 03/22/19 04/06/21 History capsule amlodipine 5 mg tablet 2.5 mg PO QAM #30 tab 04/28/20 04/06/21 Rx simvastatin 20 mg tablet 20 mg PO QPM #90 tab 09/07/20 04/06/21 Rx chlorthalidone 25 mg tablet 25 mg PO DAILY #90 tab 12/23/20 04/06/21 Rx levothyroxine 112 mcg capsule 112 mcg PO DAILY 02/04/21 04/06/21 History ascorbic acid (vitamin C) 500 mg 500 mg PO DAILY 04/06/21 04/06/21 History tablet (Vitamin C) aspirin 81 mg tablet,delayed 81 mg PO DAILY 04/06/21 04/06/21 History release calcium carbonate 600 mg calcium 600 mg PO DAILY 04/06/21 04/06/21 History (1,500 mg) tablet (Calcium) fenofibric acid (choline) 135 mg 135 mg PO DAILY 04/06/21 04/06/21 History capsule,delayed release (Trilipix) zinc sulfate 50 mg zinc (220 mg) 50 mg PO BID 04/06/21 04/06/21 History tablet Past Med/Surg History Medical History Anosmia Heart palpitations Hyperlipidemia Hypothyroid Surgical History History of cataract surgery History of section History of colonoscopy History of hysterectomy History of tonsillectomy Family History Unknown Hypertension Mother Congestive heart failure Father Congestive heart failure Daughter Diabetes Son Diabetes Denies family history of Ovarian cancer Prostate cancer Myocardial infarction Breast cancer Lung cancer Colorectal cancer Social History Smoking Status: Former smoker Tobacco Type: Cigarettes Second Hand Exposure: No; Hx Alcohol Use: Yes Alcohol type: wine Alcohol Intake Frequency: 4 or More x per/Week Hx Substance Use: No Preferred Language: Citizen Of [place] Communication Ability: Effective Visual Impairment: Limited Hearing Ability: Normal Senior Support Analyst Required: No Beliefs That Will Affect Care: None marital status: / Current Living Situation: Alone current occupational status: retired How many Children do You have: 2 Other Information That Helps Us Care for You: No Feels Safe at Home: Yes Safety Concerns: Feels Safe At This Time Childhood Exposure to Second-Hand Smoke: No caffeine: Yes Dental Care, Regularly: Yes Physical Activity Frequency: Daily Seatbelt Use: always Sunscreen Use: Yes Assistive Devices: Glasses Review of Systems Constitutional: no fever and no sweats Eyes: + blind spots Ear, Nose, Mouth, Throat: no ear pain and no ear trauma Respiratory: no cough and no change in sputum Cardiovascular: no chest pain and no chest pain with activity Gastrointestinal: no abdominal pain and no bloating Genitourinary: no dysuria and no urinary frequency Musculoskeletal: no back pain and no radicular pain Integumentary: no acne and no rash Neurologic: no gait abnormality and no falls Psychiatric: no behavioral changes and no hopelessness Endocrine: no fatigue and no polydipsia Hematologic / Lymphatic: no easy bleeding and no coagulopathy Allergy / Immunological: no GI upset with certain foods and no lip swelling Physical Exam Constitutional: WD/WN, vitals as above Eyes: Left lateral vision is intacted. However patient has no left central vision. Left pupil is not reactive to light. ENMT: external ear and nose normal, oropharynx normal Neck: trachea midline, no thyromegaly Respiratory: normal respiratory effort, lungs clear to auscultation Cardiovascular: RRR, no murmur, no edema Gastrointestinal (Abdomen): normal bowel sounds, soft, nontender, no hepatosplenomegaly Musculoskeletal: no cyanosis or clubbing, extremities motor strength 5/5 Skin: no rashes, warm and dry Neurologic: Normal Occular Movementes Intact bilaterally, normal strength and sensation Psychiatric: A+Ox3, euthymic affect Lymphatic: no cervical or axillary lymphadenopathy Results & Data Results & Data ([facility]) Vital Signs (Past 12 Hours) Vital Signs Temp Pulse Resp BP Pulse Ox 04/06/21 11:33 81 14 158/75 H 95 04/06/21 10:53 36.6 C 84 20 174/85 H 95 PG Care Time/CCT Total # of Minutes Spent Total Time Spent with Patient: Total time spent is greater than 50% in coordination of care (as documented) at patient's floor/unit and/or counseling patient: Coding Level of Care Code 90128 Initial Inpt Care Lvl 3 Diagnoses Central retinal artery occlusion, left eye H34.12 Hyperlipidemia E78.5 Hypothyroidism E03.9 Pre-diabetes R73.03 Hypertension I10
[2021-04-06] MEDS ORDERED: PHARMACIST DISCHARGE MED REC CONSULT PRN (14:29)
--- NOTE | 2021-04-06 17:01 | Electrocardiogram Report ---
Test Reason : Blood Pressure : / mmHG Vent. Rate : 089 BPM Atrial Rate : 089 BPM P-R Int : 136 ms QRS Dur : 076 ms QT Int : 358 ms P-R-T Axes : 075 058 053 degrees QTc Int : 435 ms Normal sinus rhythm Possible Left atrial enlargement Nonspecific T wave abnormality Abnormal ECG When compared with ECG of 19-DEC-2009 12:25, Nonspecific T wave abnormality now evident in Lateral leads Confirmed by Steven Frazier ([id number]) on 04/06/2021 5:01:01 PM Referred By: REFERRED SELF Confirmed By:Steven Frazier
--- NOTE | 2021-04-06 17:18 | Magnetic Resonance Report ---
MRI OF THE BRAIN WITHOUT IV CONTRAST CLINICAL HISTORY: Central retinal occlusion. COMPARISON STUDY: CT of the brain dated 04/06/2021. MRI of the brain dated 01/19/2010. TECHNIQUE: MRI of the brain was performed utilizing various T1 and T2-weighted sequences in the axial , sagittal, and coronal planes. IV contrast was not administered for this examination. FINDINGS: Brain parenchyma: There is an 11 mm linear focus of restricted diffusion identified within the anteri or aspect of the right external capsule consistent with acute to subacute ischemia. There is also a q uestionable focus of restricted diffusion (better seen with drop in signal on the ADC map) within the inferior left temporal lobe with corresponding FLAIR abnormality. There is age-related involutional change noting [id number]-[id number] subcortical and periventricular microangiopathic disease. There is no hemorrhage or mass effect. No extra-axial fluid collection is seen. The cerebellar tonsils are rio l in configuration. Ventricles, sulci, and cisterns: Prominent secondary to involutional change. Pituitary and sella: Partially and the sella is incidentally noted. Intracranial vasculature: Normal flow voids are maintained at the skull base. Orbits: The bony orbits are grossly intact. Orbital contents are normal in appearance noting bilatera l ocular lens implant. Sinuses and mastoids: Clear. Calvarium: Unremarkable. Cervical cord: Partially visualized cervical spinal cord is normal in morphology and signal intensity . IMPRESSION: 1. There is an 11 mm linear focus of restricted diffusion identified within the right external capsul e consistent with acute to subacute ischemia. 2. Question an additional small acute to subacute cortical infarct within the inferior left temporal lobe. 3. There is no hemorrhage or mass effect. 4. Additional findings as above. ACT 112: Negative or not required by law. Electronically signed by: Willian Thomason M.D. 04/06/2021 5:17 PM
[2021-04-06] MEDS: CLOPIDOGREL BISULFATE 75 MG TAB PO SCH (20:47)
[2021-04-06] MEDS: HEPARIN SOD 5,000 UNIT/0.5 ML VIAL SQ SCH (20:49)
[2021-04-06] MEDS ORDERED: ATORVASTATIN 40 MG TAB PO SCH (21:00)
--- NOTE | 2021-04-07 03:43 | Communication Note ---
Date of Service: April 07, 2021 Made aware by nursing at 3:11 am that patient had a positive troponin of 0.177 at 11am 04/06 but no troponins had been ordered to trend, and patient had MRI finding of acute ischemia. Stat troponin ordered. Stat EKG ordered. After review of MRI, CTA head and neck, CT head and labwork, discussed case with Dr. Chopra regarding next steps aroudn 3:30am. Evaluated patient at bedside. She stated that she had vision at 7 am when she got up, but sometime shortly after realized she couldn't see out of her left eye. Vision in left eye has not improved since. Vision in right eye remains normal. No chest pain/sob/weakness/numbness/tingling all day. New EKG at bedside unchanged from prior. Attempted to get in contact with [facility] habilitative interventionist stroke neurologist for recommendations to prevent damage to right eye at 4:05 AM. Able to reach Dr. Giles at approximately 4:40 -- recommended continuing ASA/Plavix/high dose statin, and recommended repleting magnesium to >2 and having maintenance fluids added. Ophtho consult for AM placed. orders for magnesium repletion and maintenance fluids placed.
[2021-04-07] MEDS ORDERED: SODIUM CHLORIDE 0.9% 1000ML 1,000 ML IV SCH (04:45)
[2021-04-07] MEDS: MAGNESIUM SULFATE / D5W 1 GM/100 ML BAG IV SCH ×2 (04:58→06:44)
[2021-04-07] MEDS ORDERED: LEVOTHYROXINE SODIUM 112 MCG TABLET PO SCH (06:30)
[2021-04-07] MEDS: CLOPIDOGREL BISULFATE 75 MG TAB PO SCH (08:22)
[2021-04-07] MEDS: HEPARIN SOD 5,000 UNIT/0.5 ML VIAL SQ SCH (08:23)
--- NOTE | 2021-04-07 08:48 | Medical Student Progress Note ---
Date of Service April 07, 2021 Assessment & Plan Plan: Alda is a 89 yo female with a pmh of hyperlipidemia and hypothyroidism and presenting with left central retinal artery occlusion and NSTEMI. 1) Left central artery occlusion Complete left eye vision loss. No history of atrial fibrillation. NSTEMI may point to a possible cardiac source for embolic. Giant cell arteritis was considered with an elevated ESR (49) but clinical picture lacks other classic findings including headaches, temporal pain, or Polymyalgia Rheumatica. - Aspirin 81 mg PO DAILY - Clopidigrel 75 mg PO QAM 2) NSTEMI Elevated troponin .177 --> .192, No ECG changes between yesterday and today -Dual Antiplatelet Therapy as seen above -Heparin 5,000 units SQ Q12 3) Hyperlipidemia - Atorvastatin 80 mg PO HS 4) Hypothyroidism - Levothyroxine 112 mcg PO DAILY DVT prophylaxis: Heparin F/N/E: Normal diet Dispos: Telemetry Full Code Admission and Anticipated Discharge Date Admission Date: April 06, 2021 Subjective Mrs. Chavez is a 89 yo female with a past medical history of HLD and hypothyroidism presenting with complete left eye vision and elevated troponin I level. Yesterday morning (04-06-21) she woke from sleep to discover that she was not able to see out of her left eye. She saw the eye doctor the same day, where she was diagnosed with left central retinal artery occlusion and encouraged to go the ER. In the ER she reported no chest pain or difficulty breathing but was found to have an abnormal ECG and elevated troponin I (.177). She was prescribed ASA and Plavix. A second ECG was abnormal and trop was elevated this morning at 3 am. Today, she says she is "doing fine". Her vision remains completely gone in the left eye. She denies any headache, dizziness, chest pain, shortness of breath, nausea or vomiting. Fhx is significant for CHF in both parents and DM in children She has aprox. a 20 pack year history (quit in 1981) and drinks a glass of wine a night. 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 Review of Systems Constitutional: no body aches Eyes: as per Subjective / HPI Ear, Nose, Mouth, Throat: no hearing loss and no dizziness Respiratory: no dyspnea Cardiovascular: no chest pain Gastrointestinal: no nausea and no vomiting Physical Exam Physical Exam: General: Awake in bed, conversant, in no acute distress. HEENT: PEERLA, EOM intact, no vision in left eye Cardio: RRR with no RMG auculated on exam Resp: CTA B/L Results & Data ([facility]) Vital Signs (Past 12 Hours) Vital Signs Temp Pulse Pulse Pulse Resp BP BP 04/07/21 08:13 36.8 C 77 20 162/76 H 04/07/21 03:58 36.5 C 79 18 163/79 H 04/07/21 01:42 87 04/06/21 23:36 37.1 C 18 123/74 04/06/21 22:19 69 Pulse Ox 04/07/21 08:13 93 04/07/21 03:58 92 04/07/21 01:42 04/06/21 23:36 04/06/21 22:19 Medications Administered Current Inpatient Medications Aspirin (Aspirin 81 Mg Ectab) 81 mg PO DAILY ISAC Stop: 05/07/21 08:59 Last Admin: 04/07/21 08:23 Dose: 81 mg Documented by: Atorvastatin Calcium (Atorvastatin 40 Mg Tab) 80 mg PO HS ISAC Stop: 05/06/21 20:59 Last Admin: 04/06/21 20:48 Dose: 80 mg Documented by: Clopidogrel Bisulfate (Clopidogrel Bisulfate 75 Mg Tab) 75 mg PO QAM ISAC Stop: 05/06/21 13:59 Last Admin: 04/07/21 08:22 Dose: 75 mg Documented by: Heparin Sodium (Porcine) (Heparin Sod 5,000 Unit/0.5 Ml Vial) 5,000 units SQ Q12 ISAC Stop: 05/06/21 20:59 Last Admin: 04/07/21 08:23 Dose: 5,000 units Documented by: Magnesium Sulfate/Dextrose (Magnesium Sulfate / D5w) 1 gm in 100 mls @ 50 mls/hr IV Q2H ISAC Stop: 04/07/21 08:59 Last Infusion: 04/07/21 08:45 Dose: Infused Documented by: Sodium Chloride (Nss 1000ml) 1,000 mls @ 125 mls/hr IV .Q8H ISAC Stop: 04/07/21 12:44 Last Admin: 04/07/21 04:54 Dose: 125 mls/hr Documented by: Levothyroxine Sodium (Levothyroxine Sodium 112 Mcg Tablet) 112 mcg PO DAILYBB ISAC Stop: 05/07/21 06:29 Last Admin: 04/07/21 05:36 Dose: 112 mcg Documented by: Miscellaneous Information (Pharmacist Discharge Med Rec Consult) 1 ea N/A UD PRN PRN Reason: Consult Stop: 05/06/21 14:28 Multivitamins/Minerals (Cerovite Adv Formula Tab) 1 tab PO DAILY [facility] Stop: 05/07/21 08:59 Last Admin: 04/07/21 08:23 Dose: 1 tab Documented by:
[2021-04-07] MEDS ORDERED: ASPIRIN 81 MG ECTAB PO SCH (09:00)
[2021-04-07] MEDS ORDERED: CEROVITE ADV FORMULA TAB PO SCH (09:00)
[2021-04-07 10:36] LABS: Basophils # (auto) 0.02 K/uL (0-0.2); Basophils % (auto) 0.4 %; Eosinophils # (auto) 0.17 K/uL (0-0.5); Eosinophils % (auto) 3.4 %; Hematocrit (blood only) 41.5 % (37-47); Hemoglobin 13.8 g/dL (12.0-16.0); Lymphocytes # (auto) 1.05 K/uL (1.2-3.4); Lymphocytes % (auto) 21.2 %; Mean Corpuscular Hemoglobin 30.3 pg (25-34); Mean Corpuscular Hgb Conc 33.3 g/dL (32-36); Mean Platelet Volume 10.1 fL (7.4-10.4); Monocytes % (auto) 10.1 %; Neutrophils # (auto) 3.21 K/uL (1.4-6.5); Neutrophils % (auto) 64.9 %; Platelet Count 225 K/uL (130-400); RDW Coefficient of Variation 12.7 % (11.5-14.5); RDW Standard Deviation 42.2 fL (36.4-46.3); Red Blood Count 4.56 M/uL (4.2-5.4); White Blood Count 4.95 K/uL (4.8-10.8)
[2021-04-07 10:54] LABS: BUN Creatinine Ratio 17.1 (10-20); Calcium 9.1 mg/dl (8.5-10.1); Creatinine Clr Calc Pharmacy 42.1 ml/min; Est GFR (African American) 60.8 ml/min; Est GFR (Non-African American) 52.4 ml/min; Potassium 3.5 mmol/L (3.5-5.1)
--- NOTE | 2021-04-07 10:54 | Neurology Consultation ---
Date of Consultation April 07, 2021 Assessment & Plan (1) Central retinal artery occlusion, left eye: (2) Stroke: (3) Fibromuscular dysplasia of both carotid arteries: In addition to an acute left central retinal artery occlusion, this patient has 2 additional areas of acute ischemic stroke on recently completed brain MRI. One of these is within the right external capsule, the other is within the inferior left temporal lobe. Both of these additional acute ischemic lesions are asymptomatic, however. The underlying stroke mechanism for this patient is not completely clear. She does have evidence of bilateral fibromuscular dysplasia of the internal carotid arteries on CT angiography which does increase the risk for stroke. However, she has evidence of acute ischemic stroke in several different vascular territories and a cardioembolic event may be more likely. She does have a slight elevation in troponin suggestive of a non-ST elevation [place]. Patient's sedimentation rate is only mildly elevated and is slightly improved this morning. She does not have symptoms suggestive of temporal arteritis. Follow with results of echocardiogram. Evaluate for embolic source. I do not think this patient requires a temporal artery biopsy at this time or treatment with prednisone. I agree with the addition of Plavix 75 mg/day to this patient's medication regimen. Would continue with dual antiplatelet therapy for 3 weeks, then transition to Plavix monotherapy thereafter. Would consider anticoagulation if more objective evidence of a cardioembolic source or mechanism is identified (atrial fibrillation, akinetic apex, apical thrombus, etc.) Would recommend 30-day mobile cardiac outpatient telemetry. Patient will need additional outpatient follow-up with ophthalmology. Would also recommend a nonurgent consultation with a neurovascular specialist at [facility] for her fibromuscular dysplasia. May follow-up with me or our advanced rn family practice in 3 to 4 weeks. History of Present Illness Reason for Consultation: left central retinal artery occlusion Requesting Physician: Rodolfo Olmedo Attending Physician: Santos De Jesus DO History of Present Illness The patient is an 89-year-old female who was referred by her teacher of the deaf/hard of hearing to the hospital for further evaluation and management of a left central artery occlusion. The patient remarks that she awoke from sleep yesterday morning with near complete vision loss to the left eye. No associated pain. He does indicate that she has some preserved peripheral vision with the left eye but is unable to see things directly or read with that eye. She is not aware of any vision difficulty with the right eye. Again, she denies experiencing any associated pain or headache. No scalp tenderness, jaw pain with chewing, or shoulder girdle myalgia. No other systemic symptoms such as fevers, chills, chest pains or palpitations. Past medical history is notable for hyperlipidemia, hypertension, and prediabetes. She quit smoking cigarettes in the late . She takes daily low-dose aspirin and simvastatin as an outpatient. She denies a history of stroke or TIA. She did have a CT of the head and CT angiogram of the head and neck. No evidence of hemorrhage or acute process. There is evidence of chronic small vessel ischemic disease and mild atrophy. No significant intracranial vascular lesions identified although CTA of the neck does reveal beading of both internal carotid arteries, typical in appearance for fibromuscular dysplasia. A brain MRI has been completed as well which reveals an 11 mm linear focus of restricted diffusion within the right external capsule consistent with an acute to subacute infarct. There is a small subacute to acute infarct within the inferior left temporal lobe as well. No hemorrhage. I reviewed the images as well as the radiologist's interpretation of these tests and agree. Other than the acute painless vision loss to the left eye, the patient denies experiencing any other focal neurologic symptoms such as change in speech, or focal weakness. Allergies Allergy/AdvReac Type Severity Reaction Status Date / Time codeine Allergy Mild VOMITING Verified 04/06/21 11:02 Home Medications Medication Instructions Recorded Confirmed Type B-complex with vitamin C (Super B 1 tab PO DAILY 03/22/19 04/06/21 History Complex-Vitamin C) cholecalciferol (vitamin D3) 125 5,000 units PO DAILY tab 03/22/19 04/06/21 History mcg (5,000 unit) tablet multivitamin-ferrous 1 tab PO DAILY 03/22/19 04/06/21 History fumarate-folic acid 18 mg-400 mcg tablet (Centrum Women) omega-3 acid ethyl esters 1 gram 1 cap PO DAILY cap 03/22/19 04/06/21 History capsule amlodipine 5 mg tablet 2.5 mg PO QAM #30 tab 04/28/20 04/06/21 Rx simvastatin 20 mg tablet 20 mg PO QPM #90 tab 09/07/20 04/06/21 Rx chlorthalidone 25 mg tablet 25 mg PO DAILY #90 tab 12/23/20 04/06/21 Rx levothyroxine 112 mcg capsule 112 mcg PO DAILY 02/04/21 04/06/21 History ascorbic acid (vitamin C) 500 mg 500 mg PO DAILY 04/06/21 04/06/21 History tablet (Vitamin C) aspirin 81 mg tablet,delayed 81 mg PO DAILY 04/06/21 04/06/21 History release calcium carbonate 600 mg calcium 600 mg PO DAILY 04/06/21 04/06/21 History (1,500 mg) tablet (Calcium) fenofibric acid (choline) 135 mg 135 mg PO DAILY 04/06/21 04/06/21 History capsule,delayed release (Trilipix) zinc sulfate 50 mg zinc (220 mg) 50 mg PO BID 04/06/21 04/06/21 History tablet Patient History Medical History (Updated 04/07/21 @ 10:53 by Ozzie Lackey MD) Anosmia Heart palpitations Hyperlipidemia Hypothyroid Surgical History History of cataract surgery History of section History of colonoscopy History of hysterectomy History of tonsillectomy Family History Unknown Hypertension Mother Congestive heart failure Father Congestive heart failure Daughter Diabetes Son Diabetes Denies family history of Ovarian cancer Prostate cancer Myocardial infarction Breast cancer Lung cancer Colorectal cancer Social History Smoking Status: Former smoker Tobacco Type: Cigarettes Second Hand Exposure: No; Hx Alcohol Use: Yes Alcohol type: wine Alcohol Intake Frequency: 4 or More x per/Week Hx Substance Use: No Preferred Language: Kazakh Communication Ability: Effective Visual Impairment: Limited Hearing Ability: Normal Commercial Collections Specialist Required: No Beliefs That Will Affect Care: None marital status: / Current Living Situation: Alone current occupational status: retired How many Children do You have: 2 Other Information That Helps Us Care for You: No Feels Safe at Home: Yes Safety Concerns: Feels Safe At This Time Childhood Exposure to Second-Hand Smoke: No caffeine: Yes Dental Care, Regularly: Yes Physical Activity Frequency: Daily Seatbelt Use: always Sunscreen Use: Yes Assistive Devices: None Review of Systems Constitutional: no fever and no chills Eyes: as per Subjective / HPI and + blind spots; no diplopia and no eye pain Ear, Nose, Mouth, Throat: no ear pain and no hearing loss Respiratory: no cough and no dyspnea Cardiovascular: no chest pain and no palpitations Gastrointestinal: no constipation and no diarrhea/loose stools Genitourinary: no urinary urgency and no urinary incontinence Musculoskeletal: no muscle weakness and no muscle atrophy Integumentary: no rash and no lesions Neurologic: as per Subjective / HPI Psychiatric: no behavioral changes, no depression, no abnormal sleep pattern and no anxiety Hematologic / Lymphatic: no easy bruising and no lymphadenopathy Exam (Neuro) Constitutional: well developed and well nourished; no acute distress Eyes: EOM intact bilaterally and + fundoscopic abnormality (Retinal artery branches for the left eye appears somewhat pale.); + abnormal visual field confrontation (Significantly reduced visual field for the left eye), + no PERRL (Patient has a relative afferent pupillary defect for the left pupil.) and no papilledema Cardiovascular: Vessels: normal carotid upstroke; no carotid bruit Neurologic: Oriented to:: Person, Place and Time Memory: Short Term Intact and Remote Intact Attention: Span Intact and Concentration Intact Language: Naming Objects and Repeating Phrases Speech Fluency: negative Dysarthria Speech Aphasia: negative Aphasia Fund of Knowledge: Current Events, Past History and Vocabulary Cranial Nerves: Normal III, IV, (Pu pils equal round reactive to light and accommodation, eye movements normal), V (Facial sensation intact), VII (There is no facial droop or weakness), VIII (Hearing intact), IX, X (Palate elevates to midline), XI (Shoulder shrug intact) and XII (Tongue protrudes to midline); Abnorm II (Severely reduced visual field for the left eye noted with some preserved peripheral vision only.) Motor Strength: Normal Lower Extremities and Normal Upper Extremities; negative Pronator Drift Motor Tone: Normal Lower Extremities and Normal Upper Extremities Muscle Bulk/Involuntary Movements: No Involuntary Movements; negative Muscle Atrophy Sensation: Light Touch Intact, Pain/Temperature Intact, Vibration Intact and Proprioception Intact Coordination: Normal; negative Limited Balance, Dysdiadochokinesia, Finger-Nose Abnormal or Heel-Canchola Abnormal Deep Tendon Reflexes: Rt Triceps: 2+, Lt Triceps: 2+, Rt Biceps: 2+, Lt Biceps: 2+, Rt Brachioradialis: 2+, Lt Brachioradialis: 2+, Rt Patellar: 2+, Lt Patellar: 2+, Rt Ankle: 2+ and Lt Ankle: 2+ Special Tests: negative Babinski Present Gait: Normal Station and Gait Details: Retinal arterioles appear pale for the left eye. There may be a few Hollenhorst plaques as well although I am uncertain regarding this particular finding. Results & Data ([facility]) Vital Signs (Past 12 Hours) Vital Signs Temp Pulse Pulse Pulse Resp BP BP 04/07/21 08:13 36.8 C 77 20 162/76 H 04/07/21 03:58 36.5 C 79 18 163/79 H 04/07/21 01:42 87 04/06/21 23:36 37.1 C 18 123/74 Pulse Ox 04/07/21 08:13 93 04/07/21 03:58 92 04/07/21 01:42 04/06/21 23:36 Laboratory Results WBC 4.95, hemoglobin 13.8, hematocrit 41.5, platelet count 225, ESR 37, sodium 135, potassium 4.0, BUN 21, creatinine 1.01, glucose 99, calcium 10.2, magnesium 1.8, AST 26, ALT 26, troponin 0 0.177, CRP 0.61, lipid panel pending Diagnostic Findings CT of the head, CT angiography of the head and neck, and brain MRI are as described in the history of present illness. I reviewed the images as well as the radiologist's interpretation of these tests. Electrocardiogram reveals a normal sinus rhythm, possible left atrial enlargement, 89 bpm. Coding Level of Care Code 33924 Initial Inpt Care Lvl 3 Diagnoses Central retinal artery occlusion, left eye H34.12 Stroke I63.9 Fibromuscular dysplasia of both carotid arteries I77.3
[2021-04-07 11:03] LABS: C Reactive Protein 1.01 mg/dl (0-0.29); Troponin I 0.101 ng/ml (0-0.045)
[2021-04-07 14:37] LABS: Estimated Average Glucose 134 mg/dl; Hemoglobin A1C 6.3 % (4.5-5.6)
--- NOTE | 2021-04-07 15:44 | Discharge Summary ---
Date of Service April 07, 2021 Admission HPI Per Admitting Provider 89 yo female who reports waking up with left vision loss. Patient went to see her ophtalmologist who diagnosed a left central retinal artery occlusion. Patient was then brought to the ER. The patient denies any history of a stroke before. She does not take oral anticoagulants. She has no history of atrial fibrillation. She denies having any recent trauma. When she covers her right eye she cannot see out of her left eye except for the peripheral field. She states that she has been compliant with her outpatient medications otherwise. Principal Diagnosis Stroke, left central retinal artery occlusion Discharge Exam Constitutional WD/WN, vitals as above Eyes Vision loss of left eye--able to see certain colors and movements but no fine details Respiratory normal respiratory effort, lungs clear to auscultation Cardiovascular RRR, no murmur, no edema Musculoskeletal no cyanosis or clubbing, extremities motor strength 5/5 Skin no rashes, warm and dry Neurologic patellar DTR's 2+ bilat, sensation intact and PERRL, EOMI, accommodation nl, no face palsy, no dysarthria Psychiatric A+Ox3, euthymic affect Discharge Data Allergies Allergy/AdvReac Type Severity Reaction Status Date / Time codeine Allergy Mild VOMITING Verified 04/06/21 11:02 Consultations 04/06/21 13:20 ED Decision to Admit Stat 04/06/21 14:30 Consult Neurology Routine 04/07/21 03:18 Consult Ophthalmology Routine Ordered Studies 04/06/21 11:04 CT angio head w con Stat CT angio neck with con Stat CT head/brain wo con Stat 04/06/21 14:29 MR brain wo con Routine Hospital Course (1) Stroke: (2) Fibromuscular dysplasia of both carotid arteries: (3) Acute retinal artery occlusion: (4) Elevated troponin I level: (5) Hypertension: (6) Hypothyroidism: (7) Hyperlipidemia: Alda is a 89 yo female with a pmh of hyperlipidemia and hypothyroidism and presenting with left central retinal artery occlusion and NSTEMI. 1) Bihemispheric stroked and Left retinal artery occlusion - MRI brain showing acute ischemia in right external capsule as well as acute cortical infarct within inferior left temporal lobe - Neck CTA with findings of internal carotid arteries with beaded appearance bilaterally, typical in appearance for fibromuscular dysplasia - Strokes in both hemispheres as well as retinal artery occlusion point to most likely cardioembolic source - No symptoms from strokes in left or right hemispheres--near complete vision loss in left eye - No history of atrial fibrillation, not in afib on telemetry during admission but cannot completely rule this out--ordered 30-day event monitor at discharge - Giant cell arteritis was considered with an elevated ESR (49) but clinical picture lacks other classic findings including headaches, temporal pain, or Polymyalgia Rheumatica. - Echocardiogram with normal LV function, no wall motion abnormalities, no thrombus within ventricles - Aspirin 81 mg and Clopidogrel 75 mg daily at DC - Switch simvastatin to atorvastatin 80mg for high-intensity statin treat ment/secondary risk reduction - A1c elevated to 6.3--recommend discussion with PCP - Neurology consulted, recs below: - I do not think this patient requires a temporal artery biopsy at this time or treatment with prednisone. - I agree with the addition of Plavix 75 mg/day to this patient's medication regimen. Would continue with dual antiplatelet therapy for 3 weeks, then transition to Plavix monotherapy thereafter. - Would consider anticoagulation if more objective evidence of a cardioembolic source or mechanism is identified (atrial fibrillation, akinetic apex, apical thrombus, etc.) -Would recommend 30-day mobile cardiac outpatient telemetry. - Patient will need additional outpatient follow-up with ophthalmology. - Would also recommend a nonurgent consultation with a neurovascular specialist at [facility] for her fibromuscular dysplasia. - May follow-up with me or our advanced template reproduction technician in 3 to 4 weeks. 2) Elevated troponin Elevated troponin .177 --> .192, - No ECG changes--NSR - No wall motion abnormalities on Echo as above - Recommend evaluating with stress test as outpatient as previously planned 3) Hyperlipidemia - Atorvastatin 80mg daily as above--switch from simvastatin Dispo: Home Follow-up with PCP & Neurology--referral to neurovascular specialist at [facility] rec ommended Total Time Total Time Spent Total Time Spent (In Minutes): >30 Discharge Plan Discharge Items Patient Disposition: Home - Self-Care Reason For Visit: CENTRAL LEFT RENTIAL ARTERY OCCLUSION Discharge Diagnosis: Left central retinal artery occlusion, Stroke Condition on Discharge: Good Activity: Per Instructions section Non-emergency contact: Primary Care Provider and Neurologist Call non-emergency contact if: you have any medication questions and your symptoms worsen Follow-up/Referrals: Bryant Lujan MD [Primary Care Provider] - Diet: Heart Healthy Addtl Attending Provider Instructions: You were admitted to [facility] due to a finding of central retinal artery occlusion in your left eye. You had a brain MRI showing additional strokes in the right and left sides of your brain. The fact that you had multiple clots causing strokes and your eye symptoms, it's possible that there may be an arrhythmia that it causing you to be predisposed to clots. As such, we recommend you undergo cardiac event monitoring for 30 days. We have ordered this and you will be contacted for further instructions on having this done. We will switch your simvastatin to atorvastatin 40mg daily as it will help further control your cholesterol and stabilize any plaques. We will also start you on clopidogrel 75mg daily and aspirin 81mg daily to thin your blood and avoid further clotting. We recommend that you follow up with your PCP and neurology for further management and recommendations regarding your medications, and they will facilitate follow up with a vascular surgeon to give more specific thought to the fibromuscular dysplasia of your carotid arteries. Please follow up with your high school guidance counselor as well for further discussion of your vision loss. Pending Studies at Discharge: No Stand-Alone Forms: Medications to Prevent Stroke, My [facility], Smoking Cessation Medications and DC Order Prescriptions: New atorvastatin 40 mg Tablet 80 mg PO HS 30 Days Qty: 60 RF: 0 clopidogrel 75 mg Tablet 75 mg PO QAM 30 Days Qty: 30 RF: 0 Continued chlorthalidone 25 mg tablet 25 mg PO DAILY Qty: 90 RF: 3 Centrum Women 18-400 mg-mcg tablet 1 tab PO DAILY RF: 0 omega-3 acid ethyl esters 1 gram capsule 1 cap PO DAILY RF: 0 B-complex with vitamin C [Super B Complex-Vitamin C] tablet 1 tab PO DAILY RF: 0 cholecalciferol (vitamin D3) 5,000 unit tablet 5,000 units PO DAILY RF: 0 amlodipine 5 mg tablet 2.5 mg PO QAM Qty: 30 RF: 5 levothyroxine 112 mcg capsule 112 mcg PO DAILY RF: 0 aspirin 81 mg Tablet,Delayed Release (Dr/Ec) 81 mg PO DAILY RF: 0 zinc sulfate 50 mg zinc (220 mg) Tablet 50 mg PO BID RF: 0 calcium carbonate [Calcium 600] 600 mg calcium (1,500 mg) Tablet 600 mg PO DAILY RF: 0 ascorbic acid (vitamin C) [Vitamin C] 500 mg Tablet 500 mg PO DAILY RF: 0 fenofibric acid (choline) [Trilipix] 135 mg capsule,delayed release(DR/EC) 135 mg PO DAILY RF: 0 Discontinued simvastatin 20 mg tablet 20 mg PO QPM Qty: 90 RF: 3 Discharge Orders: Discharge Order (Routine); Ordered 04/07/21 [facility] Admit Date/Time: 04/06/21 14:54 Attending Provider: Santos De Jesus Admit Provider: Rodolfo Olmedo Primary Care Provider: Bryant Lujan Other Providers: Rodolfo Olmedo ; Ozzie Lackey ; Steven Birmingham Other Interventions: Discharge Summary Assessment (RN) Last Done: 04/07/21 16:34 Supervising Physician Co-Signing Physician Notes I personally examined the patient and verified all barnes points of history and exam, discussed case, and agree with decision making with Dr Humphreys. Vision about the same. First question when the room is whether or not she can go home. After extensive discussions, patient expresses good understanding of her situation and still definitely feels up to going home. No new complaints. Log Turner input appreciated. Vitals noted, in general she is awake and alert pleasant no distress. HEENT normocephalic atraumatic mucous membranes are moist. Breathing unlabored no accessory muscle use good effort. Skin shows no rashes no pallor or icterus. Neuro exam as above, no new focal deficits noted. Central retinal artery occlusion, as well as small bihemispheric strokes. Concern for embolic source. While she does have bilateral carotid fibromuscular dysplasia, it would be very unlikely for that to simultaneously cause strokes bi-hemispherically. Concern on a central embolic source seems most likelyfortunately echocardiogram is normal, no major source such as an LV thrombus identified. In reviewing her chest CT from about 10 days ago, there does not appear to be any significant aortic plaque that could have ruptured leading to this either. Sed rate technically elevated, but based on her age the numbers she is showing are not very surprising, and as neurology noted, also came down a good bit with no intervention. We will pursue central embolic further with event monitor, low threshold to consider transesophageal echo as an outpatient if A. fib is not identified. For now dual antiplatelets for 3 weeks then clopidogrel alone. Close outpatient follow-up. Follow-up with vascular surgery for further evaluation and thoughts on the fibromuscular dysplasiahow ever given to be clear, it does not appear that they directly relate to her acute events. Mild troponin elevationunclear etiology. Possibly demand ischemia from stress of above. Fortunately no wall motion abnormalities to suggest significant AL. Echo overall reassuring. Discussed with patient that it would be quite reasonable to pursue rescheduling the stress test that was originally set up as a work-up for her dyspnea by her PCP. Otherwise as above. Resident Activity Tracking Resident Involvement: Resident Care Provided Care Provided: Adult [facility]
[2021-04-07] MEDS ORDERED: STROKE PATIENT DISCHARGE STA (16:14)
--- NOTE | 2021-04-07 16:31 | Consultation ---
Date of Consultation April 07, 2021 Assessment & Plan (1) Acute retinal artery occlusion: Patient being discharged home prior to me being able to see her. She was sent in by eye physician with diagnosis or [facility] for stroke work up that has been completed and should follow up with primary eye care provider as outpatient. Patient being discharged home prior to me being able to see her. She was sent in by eye physician with diagnosis or [facility] for stroke work up that has been completed and should follow up with primary eye care provider as outpatient. History of Present Illness Requesting Physician: Dr Duarte Reason for Consultation: left central artery occlusion Attending Physician: Santos De Jesus DO History of Present Illness sent in by primary eye care dr chow to [facility] for stroke work up Allergies Allergy/AdvReac Type Severity Reaction Status Date / Time codeine Allergy Mild VOMITING Verified 04/06/21 11:02 Home Medications Medication Instructions Recorded Confirmed Type B-complex with vitamin C (Super B 1 tab PO DAILY 03/22/19 04/06/21 History Complex-Vitamin C) cholecalciferol (vitamin D3) 125 5,000 units PO DAILY tab 03/22/19 04/06/21 History mcg (5,000 unit) tablet multivitamin-ferrous 1 tab PO DAILY 03/22/19 04/06/21 History fumarate-folic acid 18 mg-400 mcg tablet (Centrum Women) omega-3 acid ethyl esters 1 gram 1 cap PO DAILY cap 03/22/19 04/06/21 History capsule amlodipine 5 mg tablet 2.5 mg PO QAM #30 tab 04/28/20 04/06/21 Rx simvastatin 20 mg tablet 20 mg PO QPM #90 tab 09/07/20 04/06/21 Rx chlorthalidone 25 mg tablet 25 mg PO DAILY #90 tab 12/23/20 04/06/21 Rx levothyroxine 112 mcg capsule 112 mcg PO DAILY 02/04/21 04/06/21 History ascorbic acid (vitamin C) 500 mg 500 mg PO DAILY 04/06/21 04/06/21 History tablet (Vitamin C) aspirin 81 mg tablet,delayed 81 mg PO DAILY 04/06/21 04/06/21 History release calcium carbonate 600 mg calcium 600 mg PO DAILY 04/06/21 04/06/21 History (1,500 mg) tablet (Calcium) fenofibric acid (choline) 135 mg 135 mg PO DAILY 04/06/21 04/06/21 History capsule,delayed release (Trilipix) zinc sulfate 50 mg zinc (220 mg) 50 mg PO BID 04/06/21 04/06/21 History tablet atorvastatin 40 mg tablet 80 mg PO HS 30 Days #60 tab 04/07/21 Rx clopidogrel 75 mg tablet 75 mg PO QAM 30 Days #30 tab 04/07/21 Rx Patient History Medical History (Updated 04/07/21 @ 10:53 by Ozzie Lackey MD) Anosmia Heart palpitations Hyperlipidemia Hypothyroid Surgical History History of cataract surgery History of section History of colonoscopy History of hysterectomy History of tonsillectomy Family History Unknown Hypertension Mother Congestive heart failure Father Congestive heart failure Daughter Diabetes Son Diabetes Denies family history of Ovarian cancer Prostate cancer Myocardial infarction Breast cancer Lung cancer Colorectal cancer Social History Smoking Status: Former smoker Tobacco Type: Cigarettes Second Hand Exposure: No; Hx Alcohol Use: Yes Alcohol type: wine Alcohol Intake Frequency: 4 or More x per/Week Hx Substance Use: No Preferred Language: Maltese Communication Ability: Effective Visual Impairment: Limited Hearing Ability: Normal Feather Shaper Required: No Beliefs That Will Affect Care: None marital status: / Current Living Situation: Alone current occupational status: retired How many Children do You have: 2 Other Information That Helps Us Care for You: No Feels Safe at Home: Yes Safety Concerns: Feels Safe At This Time Childhood Exposure to Second-Hand Smoke: No caffeine: Yes Dental Care, Regularly: Yes Physical Activity Frequency: Daily Seatbelt Use: always Sunscreen Use: Yes Assistive Devices: None Results & Data ([facility]) Vital Signs (Past 12 Hours) Vital Signs Temp Pulse Resp BP BP Pulse Ox 04/07/21 15:24 36.8 C 89 16 121/73 99 04/07/21 11:55 36.8 C 78 18 148/83 H 97 04/07/21 08:13 36.8 C 77 20 162/76 H 93
--- NOTE | 2021-04-07 16:48 | Pharmacy Report ---
Pharmacist Stroke Counseling - Date of Service April 07, 2021 - Scope: Pharmacy has been consulted to provide medication discharge counseling for this patient admitted with ischemic stroke as per the Pharmacist Discharge Counseling for Stroke Patients Protocol. - Medications on Discharge: Home Medications Medication Instructions Recorded Confirmed B-complex with vitamin C (Super B 1 tab PO DAILY 03/22/19 04/06/21 Complex-Vitamin C) cholecalciferol (vitamin D3) 125 5,000 units PO DAILY tab 03/22/19 04/06/21 mcg (5,000 unit) tablet multivitamin-ferrous 1 tab PO DAILY 03/22/19 04/06/21 fumarate-folic acid 18 mg-400 mcg tablet (Centrum Women) omega-3 acid ethyl esters 1 gram 1 cap PO DAILY cap 03/22/19 04/06/21 capsule levothyroxine 112 mcg capsule 112 mcg PO DAILY 02/04/21 04/06/21 ascorbic acid (vitamin C) 500 mg 500 mg PO DAILY 04/06/21 04/06/21 tablet (Vitamin C) aspirin 81 mg tablet,delayed 81 mg PO DAILY 04/06/21 04/06/21 release calcium carbonate 600 mg calcium 600 mg PO DAILY 04/06/21 04/06/21 (1,500 mg) tablet (Calcium) fenofibric acid (choline) 135 mg 135 mg PO DAILY 04/06/21 04/06/21 capsule,delayed release (Trilipix) zinc sulfate 50 mg zinc (220 mg) 50 mg PO BID 04/06/21 04/06/21 tablet New Rx's Medication Instructions Recorded amlodipine 5 mg tablet 2.5 mg PO QAM #30 tab 04/28/20 chlorthalidone 25 mg tablet 25 mg PO DAILY #90 tab 12/23/20 atorvastatin 40 mg tablet 80 mg PO HS 30 Days #60 tab 04/07/21 clopidogrel 75 mg tablet 75 mg PO QAM 30 Days #30 tab 04/07/21 - Action: The above medications, specifically ones for stroke treatment/prophylaxis, have been reviewed in detail with the patient prior to discharge. This includes indication, common adverse reactions, drug interactions, and medication administration. Medication counseling has been employed using the teach-back method to ensure understanding. - Outcome: The patient demonstrated understanding of the medications. Additional comments: - Counseling completed via telephone secondary to COVID-19 pandemic - Patient had all questions answered prior to discharge Thank you for allowing pharmacy to be involved in the care of this patient. Please call [phone] with any additional questions
--- NOTE | 2021-04-07 17:00 | Electrocardiogram Report ---
Test Reason : Blood Pressure : / mmHG Vent. Rate : 074 BPM Atrial Rate : 074 BPM P-R Int : 136 ms QRS Dur : 076 ms QT Int : 410 ms P-R-T Axes : 078 055 056 degrees QTc Int : 455 ms Normal sinus rhythm Possible Left atrial enlargement Borderline ECG When compared with ECG of 06-APR-2021 11:17, No significant change was found Confirmed by Steven Frazier ([id number]) on 04/07/2021 5:00:17 PM Referred By: REFERRED SELF Confirmed By:Steven Frazier
--- NOTE | 2021-04-07 17:19 | Billing Data ---
Date of Service April 07, 2021 Coding Level of Care Code D/C DAY MANAGEMENT >30 MINS
== END 2021-04-07 17:39 | disposition home or self-care (01) | DRG 65 ==
LOC: ED 10:49 → 2S 14:54 → SUATTDRO 14:54 → 2S 16:12
DX: Z79.82 Long term (current) use of aspirin; I10 Essential (primary) hypertension; I77.3 Arterial fibromuscular dysplasia; H34.12 Central retinal artery occlusion, left eye; R79.89 Other specified abnormal findings of blood chemistry; Z83.3 Family history of diabetes mellitus; E78.5 Hyperlipidemia, unspecified; E03.9 Hypothyroidism, unspecified; Z88.5 Allergy status to narcotic agent; I63.40 Cerebral infarction due to embolism of unspecified cerebral artery; R73.03 Prediabetes; R94.31 Abnormal electrocardiogram [ECG] [EKG]; I24.8 Other forms of acute ischemic heart disease; Z87.891 Personal history of nicotine dependence